=== PATIENT | male | born 1975 | race Caucasian/White ===

== ENCOUNTER 2017-09-08 09:43 | Emergency (ER) | payer SELFPAY ==
[~2017-09-08] VITALS: Ht 172.7 cm; Wt 61.2 kg
[~2017-09-08 09:43] MED LIST: ABX; CEPH-38 PO; GUAI-148 PO; ORAGEL; SERT50TA2 PO; TRM50T PO
--- OUTSIDE RECORDS SUMMARY | 2017-09-08 09:48 | XMS REPORT ---
Author Author TITO SANCHEZ Organization [employer] Address Unknown Phone Unavailable Care Team Providers Care Supervisor Photostat Name Role Phone TITO SANCHEZ CP Unavailable Allergies, Adverse Reactions, Alerts Substance Reaction Event Type N.K.D.A. Info Not Available Non Drug Allergy Problems Problem Type Condition Code Onset Dates Condition Status Assessment Major depression, single episode F32.9 Active Problem Routine general medical examination at health care facility V70.0 Active Problem Unspecified disorder of the teeth and supporting structures 525.9 Active Problem Major depression, single episode F32.9 Active Problem Acute pharyngitis 462 Active Problem Unspecified constipation 564.00 Active Problem Headache 784.0 Active Problem Unspecified acute conjunctivitis 372.00 Active Medications Medication Code System Code Instructions Start Date End Date Status Dosage Zoloft [facility] [address]-45 100 MG Orally Once a day Dec 29, 2014 1 tablet Procedures Procedure Coding System Code Date Office Visit, Est Pt., Level 3 CPT-4 66662 Jan 29, 2015 Vital Signs Date/Time: Jan 29, 2015 Cardiac Monitoring Heart Rate 92 bpm Weight 134.2 lbs Height 68.7 in BMI 19.99 Index Blood Pressure Diastolic 70 mmHg Blood Pressure Systolic 105 mmHg Results No Known Results Summary Purpose eClinicalWorks Submission
--- OUTSIDE RECORDS SUMMARY | 2017-09-08 09:48 | XMS REPORT ---
Author Author TITO SANCHEZ Organization [employer] Address Unknown Phone Unavailable Care Team Providers Care City Controller Name Role Phone TITO SANCHEZ CP Unavailable Allergies, Adverse Reactions, Alerts Substance Reaction Event Type N.K.D.A. Info Not Available Non Drug Allergy Problems Problem Type Condition Code Onset Dates Condition Status Assessment Major depression, single episode F32.9 Active Assessment CAMELIA (generalized anxiety disorder) F41.1 Active Problem Routine general medical examination at health care facility V70.0 Active Problem Unspecified disorder of the teeth and supporting structures 525.9 Active Problem Major depression, single episode F32.9 Active Problem Acute pharyngitis 462 Active Problem Unspecified constipation 564.00 Active Problem Headache 784.0 Active Problem Unspecified acute conjunctivitis 372.00 Active Medications Medication Code System Code Instructions Start Date End Date Status Dosage Zoloft [facility] [address]-28 100 MG Orally 1/2 tab Once a day X7 days, the one tab daily Dec 29, 2014 1 tablet Procedures Procedure Coding System Code Date Office Visit, Est Pt., Level 5 CPT-4 28476 Dec 29, 2014 Vital Signs Date/Time: Dec 29, 2014 Cardiac Monitoring Heart Rate 80 bpm Weight 135.6 lbs Height 68.7 in BMI 20.20 Index Blood Pressure Diastolic 80 mmHg Blood Pressure Systolic 105 mmHg Results No Known Results Summary Purpose eClinicalWorks Submission
--- OUTSIDE RECORDS SUMMARY | 2017-09-08 09:48 | XMS REPORT ---
Author Author LANDEN MCCORMACK Organization [employer] Address Unknown Phone Unavailable Care Team Providers Care Clinical Trainer Name Role Phone LANDEN MCCORMACK CP Unavailable Allergies, Adverse Reactions, Alerts Substance Reaction Event Type N.K.D.A. Info Not Available Non Drug Allergy Problems Problem Type Condition ICD-9 Code Onset Dates Condition Status Assessment Family history of colon cancer V16.0 Active Assessment Anxiety 300.00 Active Assessment Family history of diabetes mellitus (DM) V18.0 Active Problem Unspecified disorder of the teeth and supporting structures 525.9 Active Problem Headache 784.0 Active Problem Routine general medical examination at health care facility V70.0 Active Problem Unspecified constipation 564.00 Active Assessment Annual physical exam V70.0 Active Problem Unspecified acute conjunctivitis 372.00 Active Problem Acute pharyngitis 462 Active Medications No Known Medications Procedures Procedure Coding System Code Date Office Visit, Est Pt., Level 4 CPT-4 69620 Dec 17, 2014 GLYCATED HEMOGLOBIN TEST CPT-4 50796 Dec 17, 2014 Vital Signs Date/Time: Dec 17, 2014 Temperature 98.2 F Weight 132 lbs Height 69 in BMI 19.49 Index Blood Pressure Diastolic 84 mmHg Blood Pressure Systolic 120 mmHg Cardiac Monitoring Heart Rate 84 bpm Results Name Result Date Reference Range Unit Abnormality Flag A1C (IN HOUSE) Summary Purpose eClinicalWorks Submission
--- OUTSIDE RECORDS SUMMARY | 2017-09-08 09:48 | XMS REPORT ---
Author Author DANIEL BARROSO [facility] e[employer] Address Unknown Phone Unavailable Care Team Providers Care Pipe Supervisor Name Role Phone DANIEL BARROSO CP Unavailable Allergies, Adverse Reactions, Alerts Substance Reaction Event Type N.K.D.A. Info Not Available Non Drug Allergy Problems Problem Type Condition Code Onset Dates Condition Status Assessment Other viral agents as the cause of diseases classified elsewhere B97.89 Active Problem Unspecified constipation 564.00 Active Assessment Acute upper respiratory infection, unspecified J06.9 Active Problem Eye exam normal Z01.00 Active Problem Routine general medical examination at health care facility V70.0 Active Problem Major depression, single episode F32.9 Active Problem Unspecified acute conjunctivitis 372.00 Active Problem Acute pharyngitis 462 Active Problem Unspecified disorder of the teeth and supporting structures 525.9 Active Problem Headache 784.0 Active Medications Medication Code System Code Instructions Start Date End Date Status Dosage Zoloft [facility] 57063026922 100 MG Orally Once a day 1 tablet [facility] [address]-97 20 MG Orally Once a day Jan 28, 2016 Feb 02, 2016 2 tablet Procedures Procedure Coding System Code Date Office Visit, Est Pt., Level 3 CPT-4 50282 Jan 28, 2016 Vital Signs Date/Time: Jan 28, 2016 Cardiac Monitoring Heart Rate 82 bpm Weight 150.4 lbs Height 68.7 in BMI 22.40 Index Blood Pressure Diastolic 72 mmHg Blood Pressure Systolic 100 mmHg Results No Known Results Summary Purpose eClinicalWorks Submission
--- OUTSIDE RECORDS SUMMARY | 2017-09-08 09:48 | XMS REPORT ---
Author Author HAVEN TORRES Organization [facility] Address [address] [place] [address] Care Team Providers Care Head Kiln Operator Name Role Phone HAVEN TORRES Unavailable PROBLEMS Type Condition ICD9-CM Code [id number] Code Onset Dates Condition Status SNOMED Code Problem Routine general medical examination at health care facility V70.0 Active 833440787 Problem Unspecified constipation 564.00 Active 56212747 Problem Headache 784.0 Active 54901653 Problem Other chronic pain G89.29 Active 15303105 Problem Major depression, single episode F32.9 Active 46700450 Problem Acute pharyngitis 462 Active 375760976 Problem Unspecified disorder of the teeth and supporting structures 525.9 Active 831386570 Problem Eye exam normal Z01.00 Active 392884958 Problem Unspecified acute conjunctivitis 372.00 Active 84927737 ALLERGIES Substance Reaction Event Type Date Status N.K.D.A. Unknown Non Drug Allergy Mar, Unknown SOCIAL HISTORY No smoking Hx information available PLAN OF CARE Activity Details Follow Up prn Reason: VITAL SIGNS Height 68.7 in 2016-03-28 Weight 161.6 lbs 2016-03-28 Temperature 97.7 degrees Fahrenheit 2016-03-28 Heart Rate 90 bpm 2016-03-28 Respiratory Rate 18 2016-03-28 BMI 24.07 kg/m2 2016-03-28 Blood pressure systolic 110 mmHg 2016-03-28 Blood pressure diastolic 70 mmHg 2016-03-28 MEDICATIONS Medication Instructions Dosage Frequency Start Date End Date Duration Status PrednisoLONE 5 MG Active Zoloft 100 MG Orally every morning 1.5 tablets 30 days Active Ibuprofen 600 MG Orally Three times a day 1 tablet 8h Active Flexeril Active RESULTS No Results PROCEDURES Procedure Date Ordered Related Diagnosis Body Site Office Visit, Est Pt., Level 3 Mar 28, 2016 IMMUNIZATIONS No Known Immunizations
--- OUTSIDE RECORDS SUMMARY | 2017-09-08 09:48 | XMS REPORT ---
Author Author SANCHEZ HOOKS [facility] eClinicalWorks Address Unknown Phone Unavailable Care Team Providers Care Online Marketing Analyst Name Role Phone SANCHEZ HOOKS Unavailable Allergies No Known Allergies Problems Problem Type Condition Code Onset Dates Condition Status Problem Routine general medical examination at health care facility V70.0 Active Problem Unspecified disorder of the teeth and supporting structures 525.9 Active Problem Major depression, single episode F32.9 Active Problem Acute pharyngitis 462 Active Problem Unspecified constipation 564.00 Active Problem Headache 784.0 Active Problem Unspecified acute conjunctivitis 372.00 Active Medications No Known Medications Results No Known Results Summary Purpose eClinicalWorks Submission
--- OUTSIDE RECORDS SUMMARY | 2017-09-08 09:48 | XMS REPORT ---
Author Author DANIELE HAMMOND Organization [employer] Address Unknown Phone Unavailable Care Team Providers Care Property Man Name Role Phone DANIELE HAMMOND CP Unavailable Allergies, Adverse Reactions, Alerts Substance Reaction Event Type N.K.D.A. Info Not Available Non Drug Allergy Problems Problem Type Condition Code Onset Dates Condition Status Assessment Depression, major, recurrent, mild F33.0 Active Problem Unspecified constipation 564.00 Active Assessment CAMELIA (generalized anxiety disorder) F41.1 Active Problem Eye exam normal Z01.00 Active [...] Start Date End Date Status Dosage Zoloft [facility] 84341762642 100 MG Orally every morning 1.5 tablets Procedures Procedure Coding System Code Date Office Visit, Est Pt., Level 3 CPT-4 67534 Feb 03, 2016 Vital Signs Date/Time: Feb 03, 2016 Cardiac Monitoring Heart Rate 90 bpm Weight 152.4 lbs Height 68.7 in BMI 22.70 Index Blood Pressure Diastolic 82 mmHg Blood Pressure Systolic 116 mmHg Results No Known Results Summary Purpose eClinicalWorks Submission
--- OUTSIDE RECORDS SUMMARY | 2017-09-08 09:48 | XMS REPORT ---
Author Author DEBBIE LEE Organization e[employer] Address Unknown Phone Unavailable Care Team Providers Care Title Inspector Name Role Phone DEBBIE LEE CP Unavailable Allergies No Known Allergies Problems Problem [...] Date End Date Status Dosage Zoloft [facility] [address]-82 100 MG Orally Once a day Dec 29, 2014 1 tablet Results No Known Results Summary Purpose eClinicalWorks Submission
--- OUTSIDE RECORDS SUMMARY | 2017-09-08 09:49 | XMS REPORT | Continuity of Care Document ---
Author Author [facility] Address Unknown Phone Unavailable Allergies Active Description Code Type Severity Reaction Onset Reported/Identified Relationship to Patient Clinical Status Yes NKANo Known Allergies NKA Miscellaneous Allergy Mild N/A 10/25/2008 Medications There is no data. Problems Date Dx Coded Attending Type Code Diagnosis Diagnosed By 07/04/2010 LANDEN MCCORMACK APRN S 305.1 TOBACCO ABUSE 07/04/2010 LANDEN MCCORMACK APRN S 465.9 UPPER RESPIRATORY INFECTION 07/04/2010 LANDEN MCCORMACK APRN S 305.1 TOBACCO ABUSE 07/04/2010 LANDEN MCCORMACK APRN S 465.9 UPPER RESPIRATORY INFECTION 09/19/2011 LANDEN MCCORMACK APRN S 372.00 ACUTE CONJUNCTIVITIS UNSPECIFIED 09/19/2011 KATTY MCCORMACK APRNA S 372.00 ACUTE CONJUNCTIVITIS UNSPECIFIED 10/23/2011 KATTY MCCORMACK APRNA S 462 ACUTE PHARYNGITIS 10/23/2011 KATTY MCCORMACK APRNA S 564.00 UNSPECIFIED CONSTIPATION 10/23/2011 JESSICA MCCORMACK APRNNDA S 462 ACUTE PHARYNGITIS 10/23/2011 KATTY MCCORMACK APRNA S 564.00 UNSPECIFIED CONSTIPATION 04/16/2013 LANDEN MCCORMACK APRN S V70.0 EXAM - ROUTINE H&P 04/16/2013 KATTY MCCORMACK APRNA S V70.0 EXAM - ROUTINE H&P 05/19/2013 LANDEN MCCORMACK APRN S 525.9 TOOTH PAIN 05/19/2013 LANDEN MCCORMACK APRN S 784.0 HEADACHE 03/09/2016 ANASTASIA TURCIOS Ot F17.210 NICOTINE DEPENDENCE, CIGARETTES, UNCOMPL 03/09/2016 ANASTASIA TURCIOS Ot J06.9 ACUTE UPPER RESPIRATORY INFECTION, UNSPE 03/09/2016 ANASTASIA TURCIOSP Ot R05 COUGH 03/09/2016 TAMANASTASIA Ot R51 HEADACHE Procedures Code Description [place] [address] ROUTINE VENIPUNCTURE 04/16/2013 02019 UA LONG DIP 04/16/2013 10281 ESR/SED RATE 04/16/2013 47172 LIPID PANEL 04/16/2013 91263 CBC 04/16/2013 0165048 GFR CALC (RESULT ONLY) 04/16/2013 56565 CMP 04/16/2013 07659 TSH 04/16/2013 Results There is no data. Encounters ACCT No. Visit Date/Time Discharge Status Pt. Type Provider Facility Loc./Unit Complaint [id number] 05/19/2013 09:49:00 05/19/2013 23:59:59 [facility] Outpatient LANDEN MCCORMACK APRN [id number] 04/16/2013 08:51:00 04/16/2013 23:59:59 [facility] Outpatient LANDEN MCCORMACK APRN [id number] 03/09/2016 20:23:00 03/09/2016 21:08:00 DIS Emergency ANASTASIA TURCIOS [facility] ER COUGH;RUNNY NOSE;HEADACHE [id number] 05/31/2017 14:40:00 05/31/2017 23:59:59 [facility] Outpatient LANDEN MCCORMACK APRN [facility]
--- OUTSIDE RECORDS SUMMARY | 2017-09-08 09:49 | XMS REPORT ---
Author Author MYRIMA LANG [facility] eClinicalWorks Address Unknown Phone Unavailable Care Team Providers Care Beef Lugger Name Role Phone MYRIAM LANG CP Unavailable Allergies No Known Allergies Problems Problem Type Condition ICD-9 Code Onset Dates Condition Status Assessment Major depression, recurrent 296.30 Active Assessment No condition on [place] V71.09 Active Problem Unspecified disorder of the teeth and supporting structures 525.9 Active Problem Headache 784.0 Active Problem Routine general medical examination at health care facility V70.0 Active Problem Unspecified constipation 564.00 Active Assessment Anxiety, generalized 300.02 Active Problem Unspecified acute conjunctivitis 372.00 Active Problem Acute pharyngitis 462 Active Medications No Known Medications Procedures Procedure Coding System Code Date Psych diagnostic evaluation, new patient CPT-4 08464 Dec 04, 2014 Results No Known Results Summary Purpose eClinicalWorks Submission
[2017-09-08] MEDS ORDERED: FLONASE (09:58)
[2017-09-08] MEDS ORDERED: CETI10CA PO (09:59)
--- NOTE | 2017-09-08 10:43 | ED EENT ---
History of Present Illness General Chief Complaint: Oral/Throat Problems Stated Complaint: SORE THROAT Nursing Triage Note: ARRIVED VIA AMB TO ROOM 10. RIGHT SIDED SORE THROAT SINCE YESTERDAY. Source: patient Exam Limitations: no limitations History of Present Illness Date Seen by Provider: Sep 08, 2017 Time Seen by Provider: 10:40 Initial Comments This 40-year-old white male presents with a sore throat that began yesterday the patient denies associated headache or stiff neck. He has no photophobia. He denies productive cough, nausea or vomiting, diarrhea, or dysuria. The patient denies exposure to strep throat. He has not had mononucleosis in the past. Allergies and Home Medications Allergies Coded Allergies: No Known Allergies (Unverified Allergy, Mild, 10/25/08) Home Medications Cetirizine HCl 10 Mg Capsule, 10 MG PO DAILY, (Reported) Patient Home Medication List Home Medication List Reviewed: Yes Review of Systems Constitutional: No chills, No fever Eyes: Denies Blurred Vision Ears: Denies Dizziness, Denies Pain Nose: denies congestion Mouth: denies purulent discharge Throat: pain; denies neck stiffness Respiratory: No cough Cardiovascular: No chest pain Gastrointestinal: No abdominal pain, No vomiting Musculoskeletal: No back pain Skin: no symptoms reported Neurological: No Symptoms Reported Hematologic/Lymphatic: No Symptoms Reported Immunological/Allergic: no symptoms reported Past Fovdkys-Slpmim-Eylmnw Hx Past Med/Social Hx: Reviewed Nursing Past Med/Soc Hx Patient Social History Alcohol Use: Denies Use Recreational Drug Use: No Smoking Status: Current Everyday Smoker Type Used: Cigarettes Recent Foreign Travel: No Contact w/Someone Who Travel: No Recent Infectious Disease Expo: No Recent Hopitalizations: No Immunizations Up To Date Tetanus Booster (TDap): More than 5yrs PED Vaccines UTD: Yes Seasonal Allergies Seasonal Allergies: No Past Medical History Surgeries: No Respiratory: No Cardiac: No Neurological: No Reproductive Disorders: No Gastrointestinal: No Musculoskeletal: No Endocrine: No HEENT: No Cancer: No Did You Recieve Any Treatments: No Psychosocial: Yes Depression Integumentary: No Blood Disorders: No Physical Exam Vital Signs Vital Signs - First Documented 09/08/17 09:48 Temp 98.0 Pulse 75 Resp 16 B/P (MAP) 114/85 (95) Pulse Ox 96 O2 Delivery Room Air General Appearance: WD/WN, no apparent distress Eyes: bilateral eye normal inspection Ears: bilateral ear auricle normal Nose: normal inspection Mouth/Throat: tonsillar swelling Neck: non-tender, full range of motion, supple Cardiovascular: normal peripheral pulses, regular rate, rhythm Respiratory: chest non-tender, lungs clear Gastrointestinal: normal bowel sounds, non tender, soft Neurologic/Psychiatric: no motor/sensory deficits, alert, normal mood/affect, oriented x 3 Skin: normal color, warm/dry Progress/Results/Core Measures Results/Orders Lab Results Laboratory Tests Test 09/08/17 10:56 Range/Units White Blood Count 7.6 4.3-11.0 10^3/uL Red Blood Count 4.92 4.35-5.85 10^6/uL Hemoglobin 15.9 13.3-17.7 G/DL Hematocrit 44 40-54 % Mean Corpuscular Volume 89 80-99 FL Mean Corpuscular Hemoglobin 32 25-34 PG Mean Corpuscular Hemoglobin Concent 37 H 32-36 G/DL Red Cell Distribution Width 12.9 10.0-14.5 % Platelet Count 301 130-400 10^3/uL Mean Platelet Volume 10.8 H 7.4-10.4 FL Neutrophils (%) (Auto) 50 42-75 % Lymphocytes (%) (Auto) 31 12-44 % Monocytes (%) (Auto) 11 0-12 % Eosinophils (%) (Auto) 7 0-10 % Basophils (%) (Auto) 1 0-10 % Neutrophils # (Auto) 3.8 1.8-7.8 X 10^3 Lymphocytes # (Auto) 2.4 1.0-4.0 X 10^3 Monocytes # (Auto) 0.9 0.0-1.0 X 10^3 Eosinophils # (Auto) 0.5 H 0.0-0.3 10^3/uL Basophils # (Auto) 0.1 0.0-0.1 10^3/uL Monoscreen NEGATIVE NEGATIVE Group A Streptococcus Screen NEGATIVE NEGATIVE My Orders Orders - SHANNON GARDINER MD Cbc With Automated Diff (09/08/17 10:39) Monotest (09/08/17 10:39) Rapid Strep A Screen (09/08/17 10:39) Vital Signs/I&O 09/08/17 09:48 Temp 98.0 Pulse 75 Resp 16 B/P (MAP) 114/85 (95) Pulse Ox 96 O2 Delivery Room Air Blood Pressure Mean: 95 Progress Progress Note : Time: 11:35 Progress Note The patient's strep screen, Monospot, and CBC were negative, negative, and unremarkable. Discussed findings with patient. He requested a note for work. Departure Impression Primary Impression: Viral infection Disposition: HOME, SELF-CARE Condition: Unchanged Departure-Patient Inst. Decision time for Depature: 11:36 [place]errals: [facility] [place] Primary Care Physician Patient Instructions: Viral Pharyngitis (DC) Add. Discharge Instructions: Warm salt water gargles. Tylenol and or ibuprofen for pain. No work today or tomorrow. Return if any problems or questions. All discharge instructions reviewed with patient and/or family. Voiced understanding. SHANNON GARDINER MD Sep 08, 2017 10:43
[2017-09-08 11:06] LABS: BASOPHILS # (AUTO) 0.1 10^3/uL (0.0-0.1); BASOPHILS % (AUTO) 1 % (0-10); EOSINOPHILS # (AUTO) 0.5 10^3/uL (0.0-0.3); EOSINOPHILS % (AUTO) 7 % (0-10); HEMATOCRIT 44 % (40-54); HEMOGLOBIN 15.9 G/DL (13.3-17.7); LYMPHOCYTES # (AUTO) 2.4 X 10^3 (1.0-4.0); LYMPHOCYTES % (AUTO) 31 % (12-44); MEAN CORPUSCULAR HEMOGLOBIN 32 PG (25-34); MEAN CORPUSCULAR HGB CONC 37 G/DL (32-36); MEAN CORPUSCULAR VOLUME 89 FL (80-99); MEAN PLATELET VOLUME 10.8 FL (7.4-10.4); MONOCYTES # (AUTO) 0.9 X 10^3 (0.0-1.0); MONOCYTES % (AUTO) 11 % (0-12); NEUTROPHILS # (AUTO) 3.8 X 10^3 (1.8-7.8); NEUTROPHILS % (AUTO) 50 % (42-75); PLATELET COUNT 301 10^3/uL (130-400); RED BLOOD COUNT 4.92 10^6/uL (4.35-5.85); RED CELL DISTRIBUTION WIDTH 12.9 % (10.0-14.5); WHITE BLOOD COUNT 7.6 10^3/uL (4.3-11.0)
[2017-09-08 11:42] VITALS: BP 114/85
== END 2017-09-08 11:42 | disposition home or self-care (01) ==
LOC: EDUNIT# 09:43 → ER 09:45
DX: B34.9 Viral infection, unspecified (principal); F32.9 Major depressive disorder, single episode, unspecified; F17.210 Nicotine dependence, cigarettes, uncomplicated
CPT/HCPCS: 36415; 85025; 86308; 87430; 99283

== ENCOUNTER 2021-11-28 14:30 | Emergency (ER) | payer SELFPAY ==
[~2021-11-28] VITALS: Ht 177 cm; Wt 66.0 kg
[~2021-11-28 14:30] MED LIST changes: +CETI10CA PO; +FLONASE
--- NOTE | 2021-11-28 15:07 | ED General ---
General Stated Complaint: SORE THROAT/FEVER/NAUSEA/RUNNY NOSE Source of Information: Patient Exam Limitations: No Limitations History of Present Illness Date Seen by Provider: Nov 28, 2021 Time Seen by Provider: 14:45 Initial Comments 46-year-old male presents to the emergency [place] today fearing he may have COVID. He had a friend with similar symptoms a couple of days ago. Yesterday he started to have chills, sore throat, body aches, cough and a mild upset stomach. No vomiting. He has been vaccinated with his initial COVID-vaccine but has not had any booster vaccines. He has no comorbidities Allergies and Home Medications Allergies Coded Allergies: No Known Allergies (Unverified Allergy, Mild, 10/25/08) Patient Home Medication List Home Medication List Reviewed: Yes Cetirizine HCl (Zyrtec) 10 Mg Capsule, 10 MG PO DAILY, (Reported) Entered as Reported by: JOSE BAJWA on 09/08/17 0959 [Flonase] , (Reported) Entered as Reported by: JOSE BAJWA on 09/08/17 0958 Review of Systems Review of Systems Constitutional: chills, fever EENTM: no symptoms reported Respiratory: cough, short of breath Cardiovascular: no symptoms reported Gastrointestinal: nausea Genitourinary: no symptoms reported Musculoskeletal: muscle pain Skin: no symptoms reported Psychiatric/Neurological: No Symptoms Reported Hematologic/Lymphatic: No Symptoms Reported Immunological/Allergic: no symptoms reported Past Oqxpihc-Mydtoy-Hnyldf Hx Patient Social History Tobacco Use?: Yes Use of E-Cig and/or Vaping dev: No Substance use?: No Pt feels they are or have been: No Immunizations Up To Date Tetanus Booster (TDap): More than 5yrs PED Vaccines UTD: Yes Seasonal Allergies Seasonal Allergies: No Past Medical History Surgeries: No Respiratory: No Cardiac: No Neurological: No Reproductive Disorders: No Gastrointestinal: No Musculoskeletal: No Endocrine: No HEENT: No Cancer: No Did You Recieve Any Treatments: No Psychosocial: Yes Depression Integumentary: No Blood Disorders: No Family Medical History Reviewed Nursing Family Hx No Pertinent Family Hx Physical Exam Vital Signs Vital Signs - First Documented 11/28/21 14:55 Temp 36.8 Pulse 86 Resp 18 B/P (MAP) 126/86 (99) Pulse Ox 96 Capillary Refill : Height, Weight, BMI Height: 5'8.00" Weight: 135lbs. oz. 61.968875oj; BMI Method:Stated General Appearance: No Apparent Distress, WD/WN HEENT: PERRL/EOMI, TMs Normal, Normal ENT Inspection, Pharynx Normal Neck: Normal Inspection, Non Tender, Supple Respiratory: Chest Non Tender, Lungs Clear, Normal Breath Sounds, No Accessory Muscle Use, No Respiratory Distress Cardiovascular: Regular Rate, Rhythm, No Edema, No Gallop, No JVD, No Murmur, Normal Peripheral Pulses Gastrointestinal: Normal Bowel Sounds, No Organomegaly, No Pulsatile Mass, Non Tender, Soft Back: Normal Inspection, No CVA Tenderness, No Vertebral Tenderness Extremity: Normal Capillary Refill, Normal Inspection, Normal Range of Motion, Non Tender, No Calf Tenderness Neurologic/Psychiatric: Alert, Oriented x3, Normal Mood/Affect Skin: Normal Color, Warm/Dry Lymphatic: No Adenopathy Progress/Results/Core Measures Suspected Sepsis SIRS Temperature: Pulse: Respiratory Rate: Blood Pressure / Mean: Results/Orders Lab Results Laboratory Tests Test 11/28/21 14:59 Range/Units Influenza Type A (RT-PCR) Not Detected Not Detecte Influenza Type B (RT-PCR) Not Detected Not Detecte SARS-CoV-2 RNA (RT-PCR) Not Detected Not Detecte My Orders Orders - MARGARITA ESTEBAN DO Chest 1 View, Ap/Pa Only (11/28/21 15:36) Vital Signs/I&O 11/28/21 14:55 Temp 36.8 Pulse 86 Resp 18 B/P (MAP) 126/86 (99) Pulse Ox 96 Capillary Refill : Diagnostic Imaging Diagonstic Imaging: Xray Plain Films/CT/US/NM/MRI: chest Comments [place], [place] NAME: CANDYJANIS Josette [facility] REC#: [id number] PT STATUS: REG ER : 1975 PHYSICIAN: MARGARITA ESTEBAN DO ADMIT DATE: 11/28/21/ER Draft Date of Exam:11/28/21 CHEST 1 VIEW, AP/PA ONLY INDICATION: Dyspnea and fever. Cough and congestion. EXAMINATION: Single view chest 11/28/2021. FINDINGS: The cardiomediastinal silhouette is unremarkable. The pulmonary vasculature is within normal limits. The lungs and pleural spaces are clear. IMPRESSION: No evidence of an acute cardiopulmonary process. Dictated on workstation # [id number] Dict: 11/28/21 1554 Trans: 11/28/21 1601 [facility] [id number] Interpreted by: MADHAV EGAN MD Departure Communication (Admissions) Patient hemodynamically stable nontoxic. Chest x-ray negative after his COVID test was negative. I still worried this is COVID, just think we tested too soon. Discharged in stable condition with supportive care. Impression Primary Impression: Viral upper respiratory illness Disposition: HOME, SELF-CARE Condition: Stable Departure-Patient Inst. Decision time for Depature: 16:13 Referrals: [facility] [place] (PCP/Family) Primary Care Physician Patient Instructions: COVID-19 Home Care/Discharge Add. Discharge Instructions: Your COVID test is negative however I believe you still have COVID. I think we tested too early and your symptoms for 2 have been positive. Increase your fluids at home. Quarantine for 5 days. If you are still having fevers after 5 days quarantine several days 24 hours fever free. Return to the emergency department for any severe concerns. Only primary doctor in next 3 to 4 days should your symptoms worsen or return to the emergency department for any concerning symptoms. Work/School Note: Work Release Form Date Seen in the Emergency Department: Nov 28, 2021 Return to Work: Dec 02, 2021 Restrictions: No Restrictions MARGARITA ESTEBAN DO Nov 28, 2021 15:06
--- NOTE | 2021-11-28 16:02 | Diagnostic Imaging Report ---
INDICATION: Dyspnea and fever. Cough and congestion. EXAMINATION: Single view chest 11/28/2021. FINDINGS: The cardiomediastinal silhouette is unremarkable. The pulmonary vasculature is within normal limits. The lungs and pleural spaces are clear. IMPRESSION: No evidence of an acute cardiopulmonary process. Dictated by: Dictated on workstation # [id number]
[2021-11-28 16:21] VITALS: BP 126/86
== END 2021-11-28 16:21 | disposition home or self-care (01) ==
LOC: EDUNIT# 14:30 → ER 14:33
DX: J06.9 Acute upper respiratory infection, unspecified (principal); Z20.822 Contact with and (suspected) exposure to COVID-19; Z28.311 Partially vaccinated for COVID-19
CPT/HCPCS: 71045; 87636